=== PATIENT | female | born 1970 | race Two or more races ===

== ENCOUNTER 2018-06-03 23:03 | Emergency (ER) | payer SELFPAY ==
[~2018-06-03] VITALS: Ht 157.5 cm; Wt 90.9 kg
[2018-06-03 23:14] VITALS: BP 169/105
== END 2018-06-03 23:45 | disposition left against medical advice (07) ==
LOC: EMS 23:06
DX: F12.10 Cannabis abuse, uncomplicated (principal); F10.10 Alcohol abuse, uncomplicated; R41.0 Disorientation, unspecified; Z91.018 Allergy to other foods; Y90.9 Presence of alcohol in blood, level not specified
CPT/HCPCS: 93005